=== PATIENT | female | born 1960 | race Caucasian/White ===

== ENCOUNTER 2018-06-14 16:34 | Emergency (ER) | payer BC ==
[2018-06-14] MEDS ORDERED: HYDROcod/ACETAM 5/325 MG TABLET PO STA (17:05)
--- NOTE | 2018-06-14 17:10 | ED Physician Documentation ---
History of Present Illness - Stated complaint Stated Complaint: LT SHOULDER/HEAD INJ - Chief complaint Chief Complaint: General - History obtained from History obtained from: Patient, Family - History of Present Illness Timing: Today (About an hour prior to arrival her horse got spooked and bucked her and then they both went down together. She landed on her left side injuring her head and left shoulder. There is no loss of consciousness. Headache is moderate and improving.) Review of Systems Constitutional: reports: Reviewed and negative Throat: reports: Reviewed and negative Cardiac: reports: Reviewed and negative PD PAST MEDICAL HISTORY - Past Medical History Cardiovascular: Hypertension - Past Surgical History Past Surgical History: Yes - Present Medications Home Medications: Ambulatory Orders Medication Instructions Recorded Confirmed HYDROcod/ACETAM 5/325 [Vicodin 1 - 2 ea PO Q6H PRN #15 tablet 09/13/12 5/325] Lisinopril [Prinivil] 5 mg PO DAILY 09/13/12 09/13/12 - Allergies Allergies/Adverse Reactions: Allergies Allergy/AdvReac Type Severity Reaction Status Date / Time Sulfa (Sulfonamide Allergy Intermediate Rash Verified 09/13/12 15:47 Antibiotics) - Social History Does the pt smoke?: No Smoking Status: Never smoker Does the pt drink ETOH?: Yes Does the pt have substance abuse?: No - Immunizations Immunizations are current?: No PD ED PE NORMAL - Vitals Vital signs reviewed: Yes - General General: Alert and oriented X 3, No acute distress - HEENT HEENT: PERRL, EOMI, Pharynx benign - Neck Neck: Supple, no meningeal sign, No bony TTP - Cardiac Cardiac: RRR, No murmur - Respiratory Respiratory: No respiratory distress, Clear bilaterally - Abdomen Abdomen: Non tender - Extremities Extremities: Other (Tender over the left AC joint without deformity. Cannot abduct at all. Incomplete numbness over the deltoid.) - Neuro Neuro: Alert and oriented X 3, Normal speech - Psych Psych: Normal mood, Normal affect Results - Vitals Vitals: Vital Signs - 24 hr 06/14/18 16:56 Temperature 36.8 C Heart Rate 70 Respiratory 16 Rate Blood Pressure 148/100 H O2 Saturation 99 Oxygen O2 Source Room air - Rads (name of study) 3v L shoulder Radiology: EMP read contemporaneously (Normal) PD MEDICAL DECISION MAKING - ED course ED course: 57-year-old woman with fall and injury by a horse falling on her, she seems to have a clinical AC separation which is not present on x-ray and she is placed in a sling for that. During her ED stay she had a mild only a mild headache and no alteration in mental status. We discussed CT scanning but she prefers watchful waiting at home. Departure - Departure Disposition: 01 Home, Self Care Clinical Impression: Head injury Qualifiers: Encounter type: initial encounter Qualified Code(s): S09.90XA - Unspecified injury of head, initial encounter Contusion of left shoulder Qualifiers: Encounter type: initial encounter Qualified Code(s): S40.012A - Contusion of left shoulder, initial encounter Condition: Good Record reviewed to determine appropriate education?: Yes Instructions: ED Head Injury Closed Follow-Up: [facility] [Provider Group] - Within 1 week Comments: Your blood pressure was elevated today on check into the emergency department. This does not mean that you have hypertension, it is a common phenomenon to come to the emergency department and have elevated blood pressure. I recommend that you see your primary care physician within the week to have it rechecked when you are feeling better.
--- NOTE | 2018-06-14 17:43 | XRAY Report ---
Reason: shoulder inj Procedure Date: 06/14/2018 Accession Number: [id number] / [id number] Procedure: XR - Shoulder 3 View LT CPT Code: FULL RESULT: EXAM: LEFT SHOULDER RADIOGRAPHY EXAM DATE: 06/14/2018 05:26 PM. CLINICAL HISTORY: Shoulder inj. COMPARISON: None. TECHNIQUE: 3 views. FINDINGS: Bones: Normal. No fracture or bone lesion. Joints: The glenohumeral and acromioclavicular joints are normally aligned. Mild acromioclavicular joint degenerative disease. Soft tissues: The visualized hemithorax is unremarkable. No soft tissue swelling. IMPRESSION: No acute abnormality of the left shoulder. [facility]
[2018-06-14 18:23] VITALS: BP 152/91
== END 2018-06-14 18:21 | disposition home or self-care (01) ==
LOC: ED 16:34
DX: S09.90XA Unspecified injury of head, initial encounter (principal); S40.012A Contusion of left shoulder, initial encounter; W55.12XA Struck by horse, initial encounter; R51 Headache; I10 Essential (primary) hypertension
CPT/HCPCS: 99283